=== PATIENT | male | born 1940 | race Caucasian/White ===

== ENCOUNTER 2018-12-26 15:48 | Inpatient (IN) | payer MEDICARE ==
[~2018-12-26] VITALS: Ht 180.3 cm; Wt 109.3 kg
--- NOTE | 2018-12-26 15:57 | Emergency Room Report ---
History of Present Illness General Chief Complaint: Generalized Weakness Source: Medical Record Present Illness HPI 78-year-old male past medical history significant for dementia, hypertension, hyperlipidemia, CVA, [place] presents with a hypotensive episode prior to arrival, no aggravating or alleviating factors, patient denies any nausea vomiting chest pain, shortness of breath, history may be limited secondary to patient's overlying dementia, he had a systolic blood pressure measured in the mid 80s, that subsequently resolved without any intervention by the [facility], patient is brought in by EMS for evaluation Allergies: Coded Allergies: No Known Allergies (Unverified , 12/26/18) Patient History Past Medical History: see triage record Reviewed Nursing Documentation: PMH: Agreed; PSxH: Agreed Nursing Documentation-PMH Past Medical History: No History, Except For Hx Cardiac Problems: Yes - [place], A-fib, Chronic pedal edema, hypercholesterolemia Hx Hypertension: Yes - Anemia Hx Cancer: Yes - colon CA Hx Neurological Problems: Yes - Dementia Hx Cerebrovascular Accident: Yes Review of Systems Constitutional: Denies: chills, fever Eye: Denies: blurred vision, double vision ENT: Denies: throat pain, nasal discharge Respiratory: Denies: cough, shortness of breath Cardiovascular: Denies: chest pain, palpitations Gastrointestinal: Denies: abdominal pain, diarrhea, nausea, vomiting Genitourinary: Denies: dysuria, pain Musculoskeletal: Denies: back pain, muscle pain Skin: Denies: rash, lesions Neurological: Denies: headache, focal weakness Hematologic/Lymphatic: Denies: easy bleeding, easy bruising All Other Systems: limited - Patient states no to all review of systems, patient has a history of dementia Physical Exam Vital Signs Date Time Temp Pulse Resp B/P (MAP) Pulse Ox O2 Delivery O2 Flow Rate FiO2 12/26/18 15:42 97.7 98 18 104/60 (75) 98 Sp02 EP Interpretation: reviewed, normal General Appearance: well appearing, no apparent distress, alert Head: normocephalic, atraumatic Eyes: bilateral eye PERRL, bilateral eye EOMI ENT: uvula midline, moist mucus membranes Neck: supple, thyroid normal, supple/symm/no masses Respiratory: lungs clear, no respiratory distress, no retraction, no accessory muscle use Cardiovascular #1: normal peripheral pulses, no edema, no gallop, no murmur, tachycardia Gastrointestinal: non tender, soft, no guarding, no rebound Musculoskeletal: normal inspection Neurologic: alert, oriented x3 Psychiatric: mood/affect normal Skin: no rash, warm/dry Procedures Critical Care Time Critical Care Time Patient found to be hyperkalemic, no acute EKG changes, patient given insulin, fluids, and at high risk for arrhythmia Critical Care time of 31 minutes was performed exclusive of billable procedures. Medical Decision Making Diagnostic Impression: Primary Impression: Episode of generalized weakness Additional Impressions: Hypotension Acute UTI Hyperkalemia Acute kidney injury ER Course 78-year-old male multiple comorbidities, poor historian, episode of hypotension will order labs, EKG, chest x-ray, Evaluation 5:15 PM, patient found to be hyperkalemic, patient given insulin, glucose, patient also found to have an KIRSTEN, fluid resuscitation was started, patient will be admitted to telemetry floor for observation, and evaluation. Patient is at risk for deterioration secondary to hyperkalemia leading to an arrhythmia, Also given ceftriaxone 1 g for possible UTI Patient admitted to Dr. Samuels 6:00pm Laboratory Tests Test 12/26/18 16:15 12/26/18 16:40 White Blood Count 5.2 K/UL (4.8-10.8) Red Blood Count 2.82 M/UL (4.70-6.10) L Hemoglobin 10.3 G/DL (14.2-18.0) L Hematocrit 29.9 % (42.0-52.0) L Mean Corpuscular Volume 106 FL (80-99) H Mean Corpuscular Hemoglobin 36.4 PG (27.0-31.0) H Mean Corpuscular Hemoglobin Concent 34.4 G/DL (32.0-36.0) Red Cell Distribution Width 11.7 % (11.6-14.8) Platelet Count 196 K/UL (150-450) Mean Platelet Volume 6.1 FL (6.5-10.1) L Neutrophils (%) (Auto) 45.1 % (45.0-75.0) Lymphocytes (%) (Auto) 42.4 % (20.0-45.0) Monocytes (%) (Auto) 8.8 % (1.0-10.0) Eosinophils (%) (Auto) 3.1 % (0.0-3.0) H Basophils (%) (Auto) 0.6 % (0.0-2.0) Sodium Level 140 MMOL/L (136-145) Potassium Level 6.5 MMOL/L (3.5-5.1) *H Chloride Level 107 MMOL/L (98-107) Carbon Dioxide Level 23 MMOL/L (21-32) Anion Gap 10 mmol/L (5-15) Blood Urea Nitrogen 55 mg/dL (7-18) H Creatinine 3.8 MG/DL (0.55-1.30) H Estimate Glomerular Filtration Rate mL/min (>60) Glucose Level 99 MG/DL (74-106) Lactic Acid Level 2.00 mmol/L (0.4-2.0) Calcium Level 9.5 MG/DL (8.5-10.1) Total Bilirubin 0.4 MG/DL (0.2-1.0) Aspartate Amino Transferase (AST) 21 U/L (15-37) Alanine Aminotransferase (ALT) 28 U/L (12-78) Alkaline Phosphatase 83 U/L (46-116) Troponin I 0.000 ng/mL (0.000-0.056) Total Protein 6.4 G/DL (6.4-8.2) Albumin 4.0 G/DL (3.4-5.0) Globulin 2.4 g/dL Albumin/Globulin Ratio 1.7 (1.0-2.7) Lipase 263 U/L (73-393) Urine Color Pale yellow Urine Appearance Clear Urine pH 6 (4.5-8.0) Urine Specific Pierre 1.010 (1.005-1.035) Urine Protein 1+ (NEGATIVE) H Urine Glucose (UA) Negative (NEGATIVE) Urine Ketones Negative (NEGATIVE) Urine Blood Negative (NEGATIVE) Urine Nitrite Negative (NEGATIVE) Urine Bilirubin Negative (NEGATIVE) Urine Urobilinogen Normal MG/DL (0.0-1.0) Urine Leukocyte Esterase 1+ (NEGATIVE) H Urine RBC 0-2 /HPF (0 - 0) H Urine WBC 2-4 /HPF (0 - 0) Urine Squamous Epithelial Cells None /LPF (NONE/OCC) Urine Bacteria Few /HPF (NONE) EKG Diagnostic Results EKG Time: 16:20 EP Interpretation: rate 85, QTc 414, no acute ST elevations, no peaked T waves Rate: normal Rhythm: NSR ST Segments: no acute changes ASA given to the pt in ED: No Rhythm Strip Diag. Results Rhythm Strip Time: 16:09 EP Interpretation: yes Rate: 91 Rhythm: NSR, no PVC's, no ectopy Last Vital Signs Date Time Temp Pulse Resp B/P (MAP) Pulse Ox O2 Delivery O2 Flow Rate FiO2 12/26/18 15:42 97.7 98 18 104/60 (75) 98 Disposition: ADMITTED INPATIENT Condition: Improved Jose Miguel Salsa M.D. Dec 26, 2018 15:57
[2018-12-26 16:01] VITALS: BP 100/86
--- NOTE | 2018-12-26 16:04 | NUR ---
ED Nurse Note: pt brought in to ER by ambulance from [facility] due to low bp 86/50mmHg at the facility. pt aao x2-3 and bedbound at this moment but pt reported that he can ambulate with assist only for short distance. skin clean and intact. calm and cooperative. denying discomfort and pain. pt is in gown and on school lunch monitor.
--- NOTE | 2018-12-26 16:05 | NUR ---
ED Nurse Note: Checked pt's posterior skin. Rt buttock pressure ulcer noted. piture taken.
[2018-12-26 16:52] LABS: APPEARANCE,URINE CLEAR; BILIRUBIN, URINE NEGATIVE (NEGATIVE); COLOR,URINE PALE YELLOW; GLUCOSE, URINE (UA) NEGATIVE (NEGATIVE); KETONES,URINE NEGATIVE (NEGATIVE); LEUKOCYTE ESTERASE ,URINE 1+ (NEGATIVE); NITRITE,URINE NEGATIVE (NEGATIVE); PH,URINE 6 (4.5-8.0); PROTEIN,URINE 1+ (NEGATIVE); UROBILINOGEN,URINE NORMAL MG/DL (0.0-1.0)
[2018-12-26 16:54] LABS: BASOPHILS % (AUTO) 0.6 % (0.0-2.0); EOSINOPHILS % (AUTO) 3.1 % (0.0-3.0); HEMATOCRIT 29.9 % (42.0-52.0); HEMOGLOBIN 10.3 G/DL (14.2-18.0); LYMPHOCYTES % (AUTO) 42.4 % (20.0-45.0); MEAN CORPUSCULAR VOLUME 106 FL (80-99); MONOCYTES % (AUTO) 8.8 % (1.0-10.0); NEUTROPHILS % (AUTO) 45.1 % (45.0-75.0); PLATELET COUNT 196 K/UL (150-450); RED BLOOD COUNT 2.82 M/UL (4.70-6.10); RED CELL DISTRIBUTION WIDTH 11.7 % (11.6-14.8); WHITE BLOOD COUNT 5.2 K/UL (4.8-10.8)
[2018-12-26 17:09] LABS: ALANINE AMINOTRANSFERASE 28 U/L (12-78); ALBUMIN/GLOBULIN RATIO 1.7 (1.0-2.7); ALKALINE PHOSPHATASE 83 U/L (46-116); ANION GAP 10 mmol/L (5-15); ASPARTATE AMINO TRANSFERASE 21 U/L (15-37); BILIRUBIN,TOTAL 0.4 MG/DL (0.2-1.0); BLOOD UREA NITROGEN 55 mg/dL (7-18); CALCIUM 9.5 MG/DL (8.5-10.1); CARBON DIOXIDE 23 MMOL/L (21-32); CHLORIDE 107 MMOL/L (98-107); CREATININE 3.8 MG/DL (0.55-1.30); SODIUM 140 MMOL/L (136-145)
[2018-12-26 17:12] LABS: POTASSIUM 6.5 MMOL/L (3.5-5.1)
[2018-12-26] MEDS ORDERED: cefTRIAXone 1 GM in NS 55 ML IVPB ONE (17:15)
--- NOTE | 2018-12-26 17:21 | NUR ---
ED Nurse Note: x-ray at bedside.
[2018-12-26] MEDS ORDERED: D5 1/2NS 1,000 ML IV ONE (17:30)
[2018-12-26] MEDS ORDERED: Insulin Human Regular 100units/ml 3ml IV ONE (17:30)
[2018-12-26] MEDS ORDERED: Sodium Polystyrene Sulfonate 15gm Powder ORAL ONE (17:30)
[2018-12-26] MEDS ORDERED: Calcium Gluconate 1gm/10ml vial IVP ONE (17:30)
[2018-12-26] MEDS ORDERED: Sodium Bicarbonate 50ml Carp IV ONE (17:30)
--- NOTE | 2018-12-26 18:48 | NUR ---
ED Nurse Note: unable to insert F/C. pt is voiding in urinal clean and yellow urine. ERMD made aware.
--- NOTE | 2018-12-26 18:50 | NUR ---
ED Nurse Note: Attempted to insert with Coude catheter. still unable to insert.
[2018-12-26] MEDS ORDERED: LOSARTAN POTASS50 MG ORAL (19:13)
[2018-12-26] MEDS ORDERED: FLUTICASONE PRO16 G1 NASAL (19:13)
[2018-12-26] MEDS ORDERED: DONEPEZIL HCL10 M2 ORAL (19:13)
[2018-12-26] MEDS ORDERED: VITAMIN B-1000 MCG/1 IM (19:13)
[2018-12-26] MEDS ORDERED: ATORVASTATIN CA20 MG ORAL (19:13)
[2018-12-26] MEDS ORDERED: PROSCAR5 MG ORAL (19:13)
[2018-12-26] MEDS ORDERED: ASPIR 8181 MG ORAL (19:13)
[2018-12-26] MEDS ORDERED: MEMANTINE HCL E28 MG PO (19:13)
[2018-12-26] MEDS ORDERED: TRAZODONE HCL50 MG ORAL (19:15)
[2018-12-26] MEDS ORDERED: OYSTER SHELL C PO (19:15)
[2018-12-26] MEDS ORDERED: SLOW RELEASE I143 MG PO (19:15)
[2018-12-26] MEDS ORDERED: POTASSIUM CHLO20 ME1 ORAL (19:15)
[2018-12-26] MEDS ORDERED: FLOMAX0.4 MG ORAL (19:15)
--- NOTE | 2018-12-26 19:19 | NUR ---
HAND-OFF: Report given to HOUSTON Suarez. will try to give report prior to leave.
--- NOTE | 2018-12-26 19:29 | NUR ---
ED Nurse Note: Coude 16 Fr inserted by HOUSTON Valentin. report given to HOUSTON Contreras
--- NOTE | 2018-12-26 19:30 | NUR ---
ED Nurse Note: RN able to insert daugherty catheter on the 1st attempt using coude size 16 without resistance. Yellow urine collecting in a bag without blood. Patient tolerated the procedure with minimal discomfort.
--- NOTE | 2018-12-26 20:00 | NUR ---
ED Nurse Note: PT BROUGHT UP WITH MARIA TERESA RN AND CATARINO EMT. PT PLACED ON DIABETES NURSE. PT IS AOX2. ON ROOM AIR. PT SHOWS NO SIGNS OF ACUTE DISTRESS AT THE TIME. PT BELOGNINGS BROUGHT UP WITH PT.
[2018-12-26 20:04] VITALS: BP 116/61
[2018-12-26 20:13] VITALS: BP 117/72
--- NOTE | 2018-12-26 20:15 | NUR ---
NURSE NOTES: Admitted from ED this 78yo male with hypotension, hyperkalemia, generalized weakness. pt is awake, alert, oriented to self and place ; follow commands and shows no signs of any acute distress. Denies pain, denies SOB. Afebrile, NSR, O2 sats 100% on RA, BP 107 systolic. PIV site on LFA intact, IVF of D51/2NS infuses at 100ml/h. HL on left hand patent. Pt has a daugherty cath, Fr 16, draining clear yellow urine. BLE edema 2+noted, skin dry and intact; some redness noted on buttocks area but otherwise intact. Fall precautions in place. Plan of care explained, teachings need reinforcement as pt forgetful.
[2018-12-26] MEDS ORDERED: D5NS 1,000 ML IV SCH (20:45)
--- NOTE | 2018-12-26 20:45 | NUR ---
NURSE NOTES: Called Dr Samuels for orders; gave orders for diet and IV; he will put more orders in later
[2018-12-26 21:00] VITALS: BP 103/60
[2018-12-26 22:00] VITALS: BP 116/55
--- NOTE | 2018-12-26 22:14 | History & Physical ---
History and Physical History & Physicial 78 y old hypotension renal failure h/o HTN Dementia BPH h/o COlon Ca Anemia CVA CAD PAF seen in ER Per orders # [id number] Russell Samuels MD Dec 26, 2018 22:14
--- NOTE | 2018-12-26 22:30 | NUR ---
NURSE NOTES: Noted Dr Samuels's orders. pt is a full code and meds orders to commence in AM. Pt remains awake and watches TV, no distress, VSS
[2018-12-26 23:00] VITALS: BP 118/70
[2018-12-27] VITALS (17 sets, daily range): BP systolic 90–132; BP diastolic 50–70
--- NOTE | 2018-12-27 | NUR ---
NURSE NOTES: Still awake and watches TV. 2 cups OJ given. IV site intact. VSS, no distress
--- NOTE | 2018-12-27 02:00 | NUR ---
NURSE NOTES: Sleeping with HOB elevated. VSS, no distress.
--- NOTE | 2018-12-27 04:00 | NUR ---
NURSE NOTES: Awake, denies pain, denies SOB. Afebrile. IV site on LFA and HL on Lhand intact. Pt keeps on forgetting that he has a daugherty cath and always stating he needed to urinate. Bladder area soft, catheter patent. AM care rendered.
[2018-12-27 06:57] LABS: HEMATOCRIT 27.2 % (42.0-52.0); HEMOGLOBIN 9.3 G/DL (14.2-18.0); MEAN CORPUSCULAR VOLUME 107 FL (80-99); PLATELET COUNT 189 K/UL (150-450); RED BLOOD COUNT 2.55 M/UL (4.70-6.10); RED CELL DISTRIBUTION WIDTH 11.9 % (11.6-14.8); WHITE BLOOD COUNT 6.5 K/UL (4.8-10.8)
--- NOTE | 2018-12-27 07:13 | NUR ---
HAND-OFF: Report given to Phi Cuenca RN.
--- NOTE | 2018-12-27 07:14 | NUR ---
NURSE NOTES: Received patient from HOUSTON Chiang. Patient vital signs stable at this time. Patient temperature 98.4. Patient denies pain or discomfort. Patient has an order for renal ultrasound this morning. The order is not stat, so it may be done tomorrow, will follow up with Dr Samuels and ultrasound. Patient sleeping at this time. Patient easily aroused and forgetful due to history of dementia. Patient has left forearm 20G PIV that is patent, asymptomatic, and running D5 0.9% NS at 50mL/hr at this time. Patient has left hand 20G PIV that is patent, asymptomatic, and saline locked. Patient labs still pending for the morning. Will follow up. patient had high potassium yesterday. Will monitor potassium and notify MD if potassium is elevated this morning. Patient has an order for 2D echo as well as renal ultrasound. Will follow up. Patient bed in low position with bed alarm on and call light in reach at this time.
[2018-12-27 07:51] LABS: ANION GAP 10 mmol/L (5-15); BLOOD UREA NITROGEN 47 mg/dL (7-18); CARBON DIOXIDE 27 MMOL/L (21-32); CHLORIDE 111 MMOL/L (98-107); CREATININE 3.2 MG/DL (0.55-1.30); POTASSIUM 4.5 MMOL/L (3.5-5.1); SODIUM 148 MMOL/L (136-145)
[2018-12-27 07:52] LABS: ALANINE AMINOTRANSFERASE 20 U/L (12-78); ALBUMIN 3.2 G/DL (3.4-5.0); ALBUMIN/GLOBULIN RATIO 1.1 (1.0-2.7); ALKALINE PHOSPHATASE 75 U/L (46-116); ASPARTATE AMINO TRANSFERASE 11 U/L (15-37); BILIRUBIN,TOTAL 0.3 MG/DL (0.2-1.0); CALCIUM 9.5 MG/DL (8.5-10.1); CHOLESTEROL 112 MG/DL (< 200); CREATINE KINASE 40 U/L (26-308); FERRITIN 701 NG/ML (8-388); GAMMA GLUTAMYL TRANSPEPTIDASE 31 U/L (5-85); HDL CHOLESTEROL 33 MG/DL (40-60); PHOSPHORUS 4.5 MG/DL (2.5-4.9); TRIGLYCERIDES 69 MG/DL (30-150)
[2018-12-27 07:58] LABS: % IRON SATURATION 44 % (15-50); IRON 65 ug/dL (50-175); TOTAL IRON BINDING CAPACITY 148 ug/dL (250-450)
--- NOTE | 2018-12-27 08:29 | NUR ---
NURSE NOTES: Called ultrasound and then radiology when ultrasound did not answer to inquire whether the patient needs to be NPO and whether the ultrasound will be performed today. They reported that that will call me back.
[2018-12-27] MEDS ORDERED: Heparin 5000 units/ml inj SUBQ SCH (09:00)
[2018-12-27] MEDS ORDERED: Donepezil 10mg tab ORAL SCH (09:00)
[2018-12-27] MEDS ORDERED: Losartan 50mg tab ORAL SCH (09:00)
[2018-12-27] MEDS ORDERED: Memantine 10mg tab ORAL SCH (09:00)
[2018-12-27] MEDS ORDERED: Aspirin Baby 81mg ORAL SCH (09:00)
[2018-12-27] MEDS: Docusate 100mg cap ORAL SCH ×3 (09:53→17:25)
--- NOTE | 2018-12-27 12:00 | NUR ---
NURSE NOTES: Patient vital signs stable at this time. Patient temperature 98.1. Patient denies pain or discomfort. Patient has an order for renal ultrasound stat that has still not been done. Patient eating lunch at this time but does not have much of an appetite at this time. Patient easily aroused, pleasant without sign of acute distress, and forgetful due to history of dementia. Patient has left forearm 20G PIV that is patent, asymptomatic, and running D5 0.9% NS at 50mL/hr at this time. Patient has left hand 20G PIV that is patent, asymptomatic, and saline locked. Patient's potassium came back at 4.5. Will follow up. Patient bed in low position with bed alarm on and call light in reach at this time.
[2018-12-27] MEDS ORDERED: D5 1/2NS 1,000 ML IV SCH (12:38)
--- NOTE | 2018-12-27 12:43 | General Progress Note ---
Assessment/Plan Problem List: (1) Acute kidney injury ICD Codes: N17.9 - Acute kidney failure, unspecified SNOMED: 24024618, 7489270 (2) Hypotension ICD Codes: I95.9 - Hypotension, unspecified SNOMED: 90247190 (3) Anemia in chronic illness ICD Codes: D63.8 - Anemia in other chronic diseases classified elsewhere SNOMED: 322316130 (4) Elevated PSA Assessment & Plan: BPH ICD Codes: R97.20 - Elevated prostate specific antigen [PSA] SNOMED: 628373605 (5) Impaired cognition ICD Codes: R41.89 - Other symptoms and signs involving cognitive functions and awareness SNOMED: 373672745 Assessment/Plan: echo results noted- fluid challenge to tele cont per orders epo Subjective Date patient seen: Dec 27, 2018 ROS Limited/Unobtainable: No Constitutional: Reports: malaise Gastrointestinal/Abdominal: Reports: other - poor po Allergies: Coded Allergies: No Known Allergies (Unverified , 12/26/18) Objective Last 24 Hour Vital Signs Date Time Temp Pulse Resp B/P (MAP) Pulse Ox O2 Delivery O2 Flow Rate FiO2 12/27/18 09:00 100/59 12/27/18 06:00 76 17 108/54 (72) 98 12/27/18 05:02 80 12 108/55 (72) 98 12/27/18 04:00 98.5 81 17 108/55 (72) 100 12/27/18 04:00 Room Air 12/27/18 04:00 80 12/27/18 03:00 74 17 104/52 (69) 100 12/27/18 02:00 76 16 95/50 (65) 100 12/27/18 01:00 77 16 90/52 (65) 99 12/27/18 00:00 98.7 82 14 102/54 (70) 100 12/27/18 00:00 Room Air 12/27/18 00:00 78 12/26/18 23:00 96 20 118/70 (86) 100 12/26/18 22:00 88 17 116/55 (75) 100 12/26/18 21:00 93 22 103/60 (74) 100 12/26/18 20:15 Room Air 12/26/18 20:13 100 20 117/72 (87) 100 7/13/19 20:04 97.9 98 16 116/61 99 Room Air 12/26/18 20:00 97.9 98 18 116/61 99 Room Air 12/26/18 16:01 97 18 Room Air 12/26/18 16:01 97.7 97 18 100/86 98 12/26/18 15:42 97.7 98 18 104/60 (75) 98 Intake and Output 12/26/18 12/27/18 18:59 06:59 Intake Total 1055 ml 1030 ml Output Total 1350 ml Balance 1055 ml -320 ml Intake Oral 0 ml 480 ml IV Total 1055 ml 550 ml Output Urine Total 1350 ml Current Medications Medications (Trade) Dose Ordered Sig/Penelope Route PRN Reason Start Time Stop Time Status Last Admin Dose Admin Acetaminophen (Tylenol) 650 mg Q4H PRN ORAL Mild Pain/Temp > 100.5 12/26/18 22:15 01/25/19 22:14 Aspirin (ASA) 81 mg DAILY ORAL 12/27/18 09:00 01/26/19 08:59 12/27/18 09:53 Dextrose/Sodium Chloride 1,000 ml @ 75 mls/hr [id number] IV 12/27/18 12:38 01/26/19 12:37 Docusate Sodium (Colace) 100 mg THREE TIMES A DAY ORAL 12/27/18 09:00 01/26/19 08:59 12/27/18 12:33 Donepezil HCl (Aricept) 10 mg DAILY ORAL 12/27/18 09:00 01/26/19 08:59 12/27/18 09:48 Finasteride (Proscar) 5 mg DAILY ORAL 12/27/18 09:00 01/26/19 08:59 12/27/18 09:52 Heparin Sodium (Porcine) (Heparin 5000 units/ml) 5,000 units EVERY 12 HOURS SUBQ 12/27/18 09:00 01/26/19 08:59 12/27/18 09:59 Losartan Potassium (Cozaar) 25 mg DAILY ORAL 12/27/18 09:00 01/26/19 08:59 Memantine (Namenda) 10 mg DAILY ORAL 12/27/18 09:00 01/26/19 08:59 12/27/18 09:52 Ondansetron HCl (Zofran) 4 mg Q6H PRN IVP Nausea & Vomiting 12/26/18 22:15 01/25/19 22:14 Pantoprazole (Protonix) 40 mg EVERY 12 HOURS ORAL 12/27/18 09:00 01/26/19 08:59 12/27/18 09:53 Sodium Chloride 500 ml @ 999 mls/hr Q31M ONCE IV 12/27/18 12:30 12/27/18 13:00 12/27/18 12:30 Tamsulosin HCl (Flomax) 0.4 mg QHS ORAL 12/27/18 21:00 01/26/19 20:59 Trazodone HCl (Desyrel) 50 mg BEDTIME ORAL 12/27/18 21:00 01/26/19 20:59 Laboratory Tests 12/26/18 16:15: White Blood Count 5.2, Red Blood Count 2.82L, Hemoglobin 10.3L, Hematocrit 29.9L , Mean Corpuscular Volume 106H, Mean Corpuscular Hemoglobin 36.4H, Mean Corpuscular Hemoglobin Concent 34.4, Red Cell Distribution Width 11.7, Platelet Count 196, Mean Platelet Volume 6.1L, Neutrophils (%) (Auto) 45.1, Lymphocytes ( %) (Auto) 42.4, Monocytes (%) (Auto) 8.8, Eosinophils (%) (Auto) 3.1H, Basophils (%) (Auto) 0.6, Sodium Level 140, Potassium Level 6.5*H, Chloride Level 107, Carbon Dioxide Level 23, Anion Gap 10, Blood Urea Nitrogen 55H, Creatinine 3.8H, Estimat Glomerular Filtration Rate , Glucose Level 99, Lactic Acid Level 2.00, Calcium Level 9.5, Total Bilirubin 0.4, Aspartate Amino Transf (AST/SGOT) 21, Alanine Aminotransferase (ALT/SGPT) 28, Alkaline Phosphatase 83, Troponin I 0.000, Total Protein 6.4, Albumin 4.0, Globulin 2.4, Albumin/ Globulin Ratio 1.7, Lipase 263 12/26/18 16:40: Urine Color Pale yellow, Urine Appearance Clear, Urine pH 6, Urine Specific Hope 1.010, Urine Protein 1+H, Urine Glucose (UA) Negative, Urine Ketones Negative, Urine Blood Negative, Urine Nitrite Negative, Urine Bilirubin Negative , Urine Urobilinogen Normal, Urine Leukocyte Esterase 1+H, Urine RBC 0-2H, Urine WBC 2-4, Urine Squamous Epithelial Cells None, Urine Bacteria Few 12/27/18 05:51: White Blood Count 6.5, Red Blood Count 2.55L, Hemoglobin 9.3L, Hematocrit 27.2L , Mean Corpuscular Volume 107H, Mean Corpuscular Hemoglobin 36.5H, Mean Corpuscular Hemoglobin Concent 34.3, Red Cell Distribution Width 11.9, Platelet Count 189, Mean Platelet Volume 6.3L, Neutrophils (%) (Auto) , Lymphocytes (%) ( Auto) , Monocytes (%) (Auto) , Eosinophils (%) (Auto) , Basophils (%) (Auto) , Sodium Level 148H, Potassium Level 4.5, Chloride Level 111H, Carbon Dioxide Level 27, Anion Gap 10, Blood Urea Nitrogen 47H, Creatinine 3.2H, Estimat Glomerular Filtration Rate , Glucose Level 113H, Lactic Acid Level 2.20H, Calcium Level 9.5, Total Bilirubin 0.3, Aspartate Amino Transf (AST/SGOT) 11L, Alanine Aminotransferase (ALT/SGPT) 20, Alkaline Phosphatase 75, Troponin I 0.004, Total Protein 6.2L, Albumin 3.2L, Globulin 3.0, Albumin/Globulin Ratio 1.1, Differential Total Cells Counted 100, Neutrophils % (Manual) 41L, Lymphocytes % (Manual) 53H, Monocytes % (Manual) 6, Eosinophils % (Manual) 0, Basophils % (Manual) 0, Band Neutrophils 0, Platelet Estimate Adequate, Platelet Morphology Normal, Macrocytosis 1+, Hemoglobin A1c 5.0, Uric Acid 7.9H , Phosphorus Level 4.5, Magnesium Level 2.2, Iron Level 65, Total Iron Binding Capacity 148L, Percent Iron Saturation 44, Unsaturated Iron Binding 83L, Ferritin 701H, Gamma Glutamyl Transpeptidase 31, Total Creatine Kinase 40, C- Reactive Protein, Quantitative < 0.4, Pro-B-Type Natriuretic Peptide 302H, Triglycerides Level 69, Cholesterol Level 112, LDL Cholesterol 64, HDL Cholesterol 33L, Cholesterol/HDL Ratio 3.4, Carcinoembryonic Antigen [Pending], Prostate Specific Antigen 10.09H, Vitamin B12 Level 1895H, Folate 18.7, Thyroid Stimulating Hormone (TSH) 0.760 12/27/18 07:00: Urine Random Sodium 33 12/27/18 10:02: Lactic Acid Level 2.00 Height (Feet): 5 Height (Inches): 11.00 Weight (Pounds): 233 General Appearance: no apparent distress, lethargic Cardiovascular: normal rate Respiratory/Chest: decreased breath sounds Abdomen: soft Genitourinary/Rectal: other - daugherty Extremities: other - no edema Russell Samuels MD Dec 27, 2018 12:43
[2018-12-27] MEDS ORDERED: Epoetin Alfa-EPBX (NON ESRD)10,000 unit/ml vial SUBQ SCH (13:00)
--- NOTE | 2018-12-27 13:00 | NUR ---
NURSE NOTES: Spoke with Dr Samuels who ordered that patient can be transferred to telemetry when bed available. Will follow up. IV fluid changed to D5 0.45% NS at 75mL/hr.
--- NOTE | 2018-12-27 14:30 | Diagnostic Imaging Report ---
Indication: Dyspnea Comparison: None A single view chest radiograph was obtained. Findings: No definite infiltrate or pulmonary vascular congestion identified. Mild basal atelectasis noted. The heart is enlarged. The aorta is mildly enlarged consistent with atherosclerotic vascular disease. The bones are osteopenic. Impression: No acute disease
--- NOTE | 2018-12-27 14:59 | NUR ---
TRANSFER TO FLOOR: Patient transferred to telemetry, per Dr Samuels. Report given to HOUSTON Hooks. Belongings remain with patient. NO medications transferred with patient. Endorsed to inform family of transfer. Patient denies pain or discomfort at this time.
--- NOTE | 2018-12-27 15:00 | NUR ---
NURSE NOTES: Patient received from the ICU and report received from William Cuenca RN. Patient oriented to the room and the use of the call light. Bed in the lowest position and call light within reach. Patient does not display any signs of distress or SOB. Patient's IV's patent. I will continue to monitor the patient and implement care.
[2018-12-27] MEDS: D5 1/2NS 1,000 ML IV SCH (15:58)
--- NOTE | 2018-12-27 16:28 | NUR ---
HAND-OFF: Report given to HOUSTON Renae.
--- NOTE | 2018-12-27 16:30 | NUR ---
NURSE NOTES: Report received from HOUSTON Hooks. Pt. AOx2. In RA. Denies any pain or SOB. L and R hand 20g IVs. R H 20g running D51/2 NS at 75. site intact. Bed on lowest position, side rails upx2, brakes engaged. Call light within easy reach.
[2018-12-27] MEDS ORDERED: NS 500ML ONE (17:13)
[2018-12-27] MEDS ORDERED: D5NS 1000ml IV ONE (17:13)
[2018-12-27] MEDS ORDERED: Tubing IV Secondary IV ONE (17:13)
[2018-12-27] MEDS ORDERED: D5 1/2NS 1000ml IV ONE (17:13)
--- NOTE | 2018-12-27 19:26 | NUR ---
NURSE NOTES: Report received from HOUSTON Salomon. Pt is in stable condition lying comfortably in bed. Bed in the lowest position, bed brakes engaged, side rails up x3 and call light within reach. Will continue to monitor.
--- NOTE | 2018-12-27 19:30 | NUR ---
HAND-OFF: Report given to HOUSTON Hart. Pt. in stable condition.
[2018-12-27] MEDS ORDERED: FUROSEMIDE40 MG ORAL (19:36)
[2018-12-27] MEDS: TraZODone 50mg tab ORAL SCH (20:57)
[2018-12-27] MEDS: Tamsulosin 0.4mg cap ORAL SCH (20:58)
[2018-12-27] MEDS ORDERED: TraZODone 50mg tab ORAL SCH (21:00)
[2018-12-27] MEDS ORDERED: Tamsulosin 0.4mg cap ORAL SCH (21:00)
[2018-12-27] MEDS: Heparin 5000 units/ml inj SUBQ SCH (21:01)
[2018-12-28] VITALS: BP 111/59
[2018-12-28 04:00] VITALS: BP 115/61
[2018-12-28] MEDS: D5 1/2NS 1,000 ML IV SCH ×2 (04:25→18:16)
[2018-12-28 06:32] LABS: BASOPHILS % (AUTO) 0.4 % (0.0-2.0); EOSINOPHILS % (AUTO) 3.7 % (0.0-3.0); HEMATOCRIT 25.1 % (42.0-52.0); HEMOGLOBIN 8.5 G/DL (14.2-18.0); MEAN CORPUSCULAR VOLUME 107 FL (80-99); MONOCYTES % (AUTO) 7.6 % (1.0-10.0); NEUTROPHILS % (AUTO) 36.3 % (45.0-75.0); PLATELET COUNT 175 K/UL (150-450); RED BLOOD COUNT 2.34 M/UL (4.70-6.10); RED CELL DISTRIBUTION WIDTH 11.9 % (11.6-14.8)
[2018-12-28 06:57] LABS: ALANINE AMINOTRANSFERASE 15 U/L (12-78); ALBUMIN 3.4 G/DL (3.4-5.0); ALBUMIN/GLOBULIN RATIO 1.4 (1.0-2.7); ALKALINE PHOSPHATASE 68 U/L (46-116); ANION GAP 8 mmol/L (5-15); ASPARTATE AMINO TRANSFERASE 9 U/L (15-37); BILIRUBIN,TOTAL 0.4 MG/DL (0.2-1.0); BLOOD UREA NITROGEN 35 mg/dL (7-18); CALCIUM 8.8 MG/DL (8.5-10.1); CARBON DIOXIDE 26 MMOL/L (21-32); CHLORIDE 107 MMOL/L (98-107); CREATININE 2.2 MG/DL (0.55-1.30); PHOSPHORUS 3.5 MG/DL (2.5-4.9); POTASSIUM 4.1 MMOL/L (3.5-5.1); SODIUM 141 MMOL/L (136-145)
--- NOTE | 2018-12-28 07:20 | NUR ---
NURSE NOTES: Report received from HOUSTON Stacy. Patient sleeping comfortably. Aroused by name. In RA. AOx2. Denies any pain or SOB. IV running D5 1/2 NS at 75 on R H 20g IV. Site intact. Rosales intact, draining celia urine, emptied 660mL. Bed on lowest position, side rails upx2, brakes engaged, alarm on. Reminder given to Pt. to reposition Q2 or as tolerated. Call light within easy reach.
--- NOTE | 2018-12-28 07:27 | NUR ---
HAND-OFF: Report given to HOUSTON Salomon.
[2018-12-28 08:00] VITALS: BP 99/54
--- NOTE | 2018-12-28 08:22 | NUR ---
CASE MANAGEMENT:REVIEW 78 YR OLD MALE BIBA FROM [facility] CC: HYPOTENSION BP 86/51 PMH: COLON CA SI: HYPOTENSION. KIRSTEN. HYPERKALEMIA 97.7 98 18 104/60 98% ON RA K-6.5 BUN+55 CR+3.8 IS: IV ROCEPHIN Q24 1L NS BOLUS X1 IV CA GLUCONATE IV INSULIN IV NAHCO3 IV LASIX KAYEXALATE PO CHEST XRAY : TO TELEMETRY INTERQUAL CRITERIA MET 12/28/18 SI: KIRSTEN. HYPOTENSION 98.9 81 18 115/61 96% ON RA H/H-8.5/25.1 BUN+35 CR+2.2 IS: IVF@75/HR ASA PO QD ARICEPT PO QD PROSCAR PO QD COZAAR PO QD HEPARIN SQ Q12 FLOMAX PO QHS : TELEMETRY
[2018-12-28] MEDS: Losartan 25mg tab ORAL SCH (09:00)
--- NOTE | 2018-12-28 09:30 | NUR ---
NURSE NOTES:WOUND CARE NOTES:pt presented on admission with non-blanchable erythema with shearing R buttocks . Partial thickness wound that is viable proximal R buttocks(L)5.5cm x (W)2cm. Partial thickness wound that is moist and viable (distal )R buttocks.Non-blanchable erythema noted periwound.Pt denied burning or tenderness R buttocks. Both heels are dry,firm and blanchable . No other skin concerns noted. Tx.Plan: Apply Triad paste to R and L buttocks with each incontinence care. Encourage and assist as needed to reposition at least every 2hours or as tolerated. Off-load heels with pillow
[2018-12-28] MEDS: Memantine 10mg tab ORAL SCH (09:55)
[2018-12-28] MEDS: Docusate 100mg cap ORAL SCH ×3 (09:55→18:16)
[2018-12-28] MEDS: Donepezil 10mg tab ORAL SCH (09:55)
[2018-12-28] MEDS: Aspirin Baby 81mg ORAL SCH (09:56)
[2018-12-28] MEDS: Heparin 5000 units/ml inj SUBQ SCH ×2 (09:59→20:53)
--- NOTE | 2018-12-28 11:01 | General Progress Note ---
Assessment/Plan Problem List: (1) Acute kidney injury ICD Codes: N17.9 - Acute kidney failure, unspecified SNOMED: 35290196, 2912371 (2) Hypotension ICD Codes: I95.9 - Hypotension, unspecified SNOMED: 63922271 (3) Anemia in chronic illness ICD Codes: D63.8 - Anemia in other chronic diseases classified elsewhere SNOMED: 034487437 (4) Elevated PSA Assessment & Plan: BPH ICD Codes: R97.20 - Elevated prostate specific antigen [PSA] SNOMED: 908777914 (5) Impaired cognition ICD Codes: R41.89 - Other symptoms and signs involving cognitive functions and awareness SNOMED: 596463569 Status: doing well, stable Assessment/Plan: echo results noted- fluid challenge to tele cont per orders epo ? DC in am if stable one gram rocephin , pending urine culture results Subjective ROS Limited/Unobtainable: No Allergies: Coded Allergies: No Known Allergies (Unverified , 12/26/18) Objective Last 24 Hour Vital Signs Date Time Temp Pulse Resp B/P (MAP) Pulse Ox O2 Delivery O2 Flow Rate FiO2 12/28/18 09:00 96/54 12/28/18 08:00 72 12/28/18 08:00 98.8 81 18 99/54 (69) 97 12/28/18 04:00 83 12/28/18 04:00 98.9 81 18 115/61 (79) 96 12/28/18 00:00 84 12/28/18 00:00 99.4 80 16 111/59 (76) 96 12/27/18 21:00 Room Air 12/27/18 20:00 80 12/27/18 20:00 98.2 92 18 101/51 (68) 97 12/27/18 16:00 98.4 81 18 117/61 (79) 97 12/27/18 16:00 72 12/27/18 16:00 Room Air 12/27/18 14:00 71 17 115/59 (77) 97 12/27/18 13:02 65 14 108/52 (70) 99 12/27/18 12:00 Room Air 12/27/18 12:00 98.1 82 17 124/67 (86) 100 12/27/18 12:00 76 Intake and Output 12/27/18 12/28/18 19:00 07:00 Intake Total 2375 ml Output Total 1000 ml 500 ml Balance 1375 ml -500 ml Intake Oral 900 ml IV Total 1475 ml Output Urine Total 1000 ml 500 ml Current Medications Medications (Trade) Dose Ordered Sig/Penelope Route PRN Reason Start Time Stop Time Status Last Admin Dose Admin Acetaminophen (Tylenol) 650 mg Q4H PRN ORAL Mild Pain/Temp > 100.5 12/27/18 15:01 01/26/19 15:00 Aspirin (ASA) 81 mg DAILY ORAL 12/28/18 09:00 01/26/19 08:59 12/28/18 09:56 Ceftriaxone Sodium 1 gm/ Dextrose 55 ml @ 110 mls/hr ONCE ONCE IVPB 12/28/18 11:00 12/28/18 11:29 UNV Dextrose/Sodium Chloride 1,000 ml @ 75 mls/hr [id number] IV 12/27/18 15:01 01/26/19 15:00 12/28/18 04:25 Docusate Sodium (Colace) 100 mg THREE TIMES A DAY ORAL 12/27/18 18:00 01/26/19 08:59 12/28/18 09:55 Donepezil HCl (Aricept) 10 mg DAILY ORAL 12/28/18 09:00 01/26/19 08:59 12/28/18 09:55 Epoetin Milad (Epoetin Milad-EPBX(NON ESRD)) 10,000 unit FRI-FRI-FRI SUBQ 12/28/18 21:00 01/26/19 12:59 Finasteride (Proscar) 5 mg DAILY ORAL 12/28/18 09:00 01/26/19 08:59 12/28/18 09:55 Heparin Sodium (Porcine) (Heparin 5000 units/ml) 5,000 units EVERY 12 HOURS SUBQ 12/27/18 21:00 01/26/19 08:59 12/28/18 09:59 Losartan Potassium (Cozaar) 25 mg DAILY ORAL 12/28/18 09:00 01/26/19 08:59 Memantine (Namenda) 10 mg DAILY ORAL 12/28/18 09:00 01/26/19 08:59 12/28/18 09:55 Ondansetron HCl (Zofran) 4 mg Q6H PRN IVP Nausea & Vomiting 12/27/18 15:03 01/26/19 15:02 Pantoprazole (Protonix) 40 mg EVERY 12 HOURS ORAL 12/27/18 21:00 01/26/19 08:59 12/28/18 09:54 Quetiapine Fumarate (SEROquel) 25 mg BID ORAL 12/28/18 18:00 01/27/19 17:59 UNV Tamsulosin HCl (Flomax) 0.4 mg QHS ORAL 12/27/18 21:00 01/26/19 20:59 12/27/18 20:58 Trazodone HCl (Desyrel) 50 mg BEDTIME ORAL 12/27/18 21:00 01/26/19 20:59 12/27/18 20:57 Laboratory Tests 12/27/18 15:55: Lactic Acid Level 0.90 12/28/18 05:45: Lactic Acid Level 0.80, White Blood Count 6.0, Red Blood Count 2.34L, Hemoglobin 8.5L, Hematocrit 25.1L, Mean Corpuscular Volume 107H, Mean Corpuscular Hemoglobin 36.3H, Mean Corpuscular Hemoglobin Concent 33.9, Red Cell Distribution Width 11.9, Platelet Count 175, Mean Platelet Volume 5.9L, Neutrophils (%) (Auto) 36.3L, Lymphocytes (%) (Auto) 52.0H, Monocytes (%) (Auto ) 7.6, Eosinophils (%) (Auto) 3.7H, Basophils (%) (Auto) 0.4, Sodium Level 141, Potassium Level 4.1, Chloride Level 107, Carbon Dioxide Level 26, Anion Gap 8, Blood Urea Nitrogen 35H, Creatinine 2.2H, Estimat Glomerular Filtration Rate , Glucose Level 96, Uric Acid 6.9, Calcium Level 8.8, Phosphorus Level 3.5, Magnesium Level 2.0, Total Bilirubin 0.4, Aspartate Amino Transf (AST/SGOT) 9L, Alanine Aminotransferase (ALT/SGPT) 15, Alkaline Phosphatase 68, Pro-B-Type Natriuretic Peptide 703H, Total Protein 5.9L, Albumin 3.4, Globulin 2.5, Albumin /Globulin Ratio 1.4, Cortisol AM Sample [Pending] Height (Feet): 5 Height (Inches): 11.00 Weight (Pounds): 242 General Appearance: no apparent distress Cardiovascular: normal rate Respiratory/Chest: lungs clear Abdomen: soft Russell Samuels MD Dec 28, 2018 11:01
[2018-12-28 12:00] VITALS: BP 103/56
[2018-12-28] MEDS ORDERED: cefTRIAXone 1 GM in D5W 55 ML IVPB ONE (12:00)
[2018-12-28 16:00] VITALS: BP 116/59
--- NOTE | 2018-12-28 19:50 | NUR ---
HAND-OFF: Report given to HOUSTON Neumann. Patient in stable condition.
--- NOTE | 2018-12-28 19:51 | NUR ---
NURSE NOTES: Got report from Umm CONRAD. Pt in stable condition. Denies any pain. No s/s of distress or discomfort noted. Pt resting in bed comfortably. Bed in low and locked position, call light within reach, bedside table within reach. Continue to monitor.
[2018-12-28 20:00] VITALS: BP 109/59
[2018-12-28] MEDS: TraZODone 50mg tab ORAL SCH (20:51)
[2018-12-28] MEDS: Tamsulosin 0.4mg cap ORAL SCH (20:51)
[2018-12-28] MEDS ORDERED: Epoetin Alfa-EPBX (NON ESRD)10,000 unit/ml vial SUBQ SCH (21:00)
[2018-12-29] VITALS: BP 128/61
[2018-12-29 04:10] VITALS: BP 138/57
[2018-12-29] MEDS: D5 1/2NS 1,000 ML IV SCH (06:31)
--- NOTE | 2018-12-29 07:00 | NUR ---
HAND-OFF: Report given to Emy CONRAD. Endorsed plan of care.
[2018-12-29 07:08] LABS: BASOPHILS % (AUTO) 0.4 % (0.0-2.0); EOSINOPHILS % (AUTO) 3.7 % (0.0-3.0); HEMATOCRIT 25.3 % (42.0-52.0); HEMOGLOBIN 8.6 G/DL (14.2-18.0); LYMPHOCYTES % (AUTO) 54.2 % (20.0-45.0); MEAN CORPUSCULAR VOLUME 108 FL (80-99); MONOCYTES % (AUTO) 6.6 % (1.0-10.0); NEUTROPHILS % (AUTO) 35.2 % (45.0-75.0); PLATELET COUNT 156 K/UL (150-450); RED BLOOD COUNT 2.34 M/UL (4.70-6.10); RED CELL DISTRIBUTION WIDTH 11.9 % (11.6-14.8)
[2018-12-29 07:46] LABS: ALANINE AMINOTRANSFERASE 13 U/L (12-78); ALBUMIN 2.8 G/DL (3.4-5.0); ALKALINE PHOSPHATASE 63 U/L (46-116); ANION GAP 4 mmol/L (5-15); ASPARTATE AMINO TRANSFERASE 13 U/L (15-37); BILIRUBIN,TOTAL 0.3 MG/DL (0.2-1.0); BLOOD UREA NITROGEN 25 mg/dL (7-18); CALCIUM 8.7 MG/DL (8.5-10.1); CARBON DIOXIDE 26 MMOL/L (21-32); CHLORIDE 111 MMOL/L (98-107); CREATININE 1.7 MG/DL (0.55-1.30); POTASSIUM 3.8 MMOL/L (3.5-5.1); SODIUM 141 MMOL/L (136-145)
--- NOTE | 2018-12-29 07:46 | NUR ---
NURSE NOTES: Nurse report given by HOUSTON Joseph. Patient's still sleeping, high-silva position, bed in lowest position, break engaged. IV site is patent, running D5 1/2 NS, no sign of redness or tenderness. No sign of SOB or distress.
[2018-12-29 08:00] VITALS: BP 119/63
--- NOTE | 2018-12-29 09:00 | Diagnostic Imaging Report ---
Indication: Acute renal failure Technique: Grayscale and duplex images of the kidneys, retroperitoneum, and bladder were obtained. Comparison: none Findings: Right kidney measures 9.8 cm in length. Left kidney measures 11.1 cm in length. Both kidneys demonstrate normal echogenicity. No hydronephrosis. No focal abnormality. Normal inferior vena cava. Bladder is empty, contains a Rosales catheter. There is equivocal mild bladder wall thickening Impression: Negative for hydronephrosis Empty bladder with a Rosales catheter. Equivocal mild bladder wall thickening, possibly an artifact of under distention, could indicate cystitis if real
--- NOTE | 2018-12-29 09:11 | General Progress Note ---
Assessment/Plan Problem List: (1) Acute kidney injury Assessment & Plan: Cr down to 1.7 ICD Codes: N17.9 - Acute kidney failure, unspecified SNOMED: 54328068, 7972644 (2) Hypotension ICD Codes: I95.9 - Hypotension, unspecified SNOMED: 89948893 (3) Anemia in chronic illness ICD Codes: D63.8 - Anemia in other chronic diseases classified elsewhere SNOMED: 210146852 (4) Elevated PSA Assessment & Plan: BPH ICD Codes: R97.20 - Elevated prostate specific antigen [PSA] SNOMED: 008493112 (5) Impaired cognition ICD Codes: R41.89 - Other symptoms and signs involving cognitive functions and awareness SNOMED: 635310646 Status: doing well, stable Assessment/Plan: DC to ECF Urine cultures negative DC daugherty FU with PMD echo results noted- fluid challenge to tele cont per orders epo one gram rocephin , pending urine culture results Subjective ROS Limited/Unobtainable: No Allergies: Coded Allergies: No Known Allergies (Unverified , 12/26/18) Objective Last 24 Hour Vital Signs Date Time Temp Pulse Resp B/P (MAP) Pulse Ox O2 Delivery O2 Flow Rate FiO2 12/29/18 08:00 98.1 68 20 119/63 (81) 95 12/29/18 04:20 65 12/29/18 04:10 98.5 67 18 138/57 (84) 97 12/29/18 00:00 98.3 67 18 128/61 (83) 96 12/29/18 00:00 59 12/28/18 21:00 Room Air 12/28/18 20:00 98.4 65 18 109/59 (76) 99 12/28/18 20:00 62 12/28/18 16:00 97.8 74 18 116/59 (78) 98 12/28/18 16:00 76 12/28/18 12:00 69 12/28/18 12:00 98.2 78 20 103/56 (72) 95 Intake and Output 12/28/18 12/29/18 19:00 07:00 Intake Total 240 ml Output Total 910 ml 600 ml Balance -670 ml -600 ml Intake Oral 240 ml Output Urine Total 910 ml 600 ml Stool Total 0 ml Current Medications Medications (Trade) Dose Ordered Sig/Penelope Route PRN Reason Start Time Stop Time Status Last Admin Dose Admin Acetaminophen (Tylenol) 650 mg Q4H PRN ORAL Mild Pain/Temp > 100.5 12/27/18 15:01 01/26/19 15:00 Aspirin (ASA) 81 mg DAILY ORAL 12/28/18 09:00 01/26/19 08:59 12/28/18 09:56 Dextrose/Sodium Chloride 1,000 ml @ 75 mls/hr [id number] IV 12/27/18 15:01 01/26/19 15:00 12/29/18 06:31 Docusate Sodium (Colace) 100 mg THREE TIMES A DAY ORAL 12/27/18 18:00 01/26/19 08:59 12/28/18 18:16 Donepezil HCl (Aricept) 10 mg DAILY ORAL 12/28/18 09:00 01/26/19 08:59 12/28/18 09:55 Epoetin Milad (Epoetin Milad-EPBX(NON ESRD)) 10,000 unit FRI-FRI-FRI SUBQ 12/28/18 21:00 01/26/19 12:59 12/28/18 20:51 Finasteride (Proscar) 5 mg DAILY ORAL 12/28/18 09:00 01/26/19 08:59 12/28/18 09:55 Heparin Sodium (Porcine) (Heparin 5000 units/ml) 5,000 units EVERY 12 HOURS SUBQ 12/27/18 21:00 01/26/19 08:59 12/28/18 20:53 Losartan Potassium (Cozaar) 25 mg DAILY ORAL 12/28/18 09:00 01/26/19 08:59 Memantine (Namenda) 10 mg DAILY ORAL 12/28/18 09:00 01/26/19 08:59 12/28/18 09:55 Ondansetron HCl (Zofran) 4 mg Q6H PRN IVP Nausea & Vomiting 12/27/18 15:03 01/26/19 15:02 Pantoprazole (Protonix) 40 mg EVERY 12 HOURS ORAL 12/27/18 21:00 01/26/19 08:59 12/28/18 20:51 Quetiapine Fumarate (SEROquel) 25 mg Q12HR ORAL 12/28/18 21:00 01/27/19 20:59 12/28/18 20:51 Tamsulosin HCl (Flomax) 0.4 mg QHS ORAL 12/27/18 21:00 01/26/19 20:59 12/28/18 20:51 Trazodone HCl (Desyrel) 50 mg BEDTIME ORAL 12/27/18 21:00 01/26/19 20:59 12/28/18 20:51 Laboratory Tests 12/29/18 05:55: White Blood Count 5.0, Red Blood Count 2.34L, Hemoglobin 8.6L, Hematocrit 25.3L , Mean Corpuscular Volume 108H, Mean Corpuscular Hemoglobin 36.6H, Mean Corpuscular Hemoglobin Concent 33.9, Red Cell Distribution Width 11.9, Platelet Count 156, Mean Platelet Volume 6.8, Neutrophils (%) (Auto) 35.2L, Lymphocytes ( %) (Auto) 54.2H, Monocytes (%) (Auto) 6.6, Eosinophils (%) (Auto) 3.7H, Basophils (%) (Auto) 0.4, Sodium Level 141, Potassium Level 3.8, Chloride Level 111H, Carbon Dioxide Level 26, Anion Gap 4L, Blood Urea Nitrogen 25H, Creatinine 1.7H, Estimat Glomerular Filtration Rate , Glucose Level 88, Uric Acid 6.4, Calcium Level 8.7, Total Bilirubin 0.3, Aspartate Amino Transf (AST/ SGOT) 13L, Alanine Aminotransferase (ALT/SGPT) 13, Alkaline Phosphatase 63, Total Protein 5.7L, Albumin 2.8L, Globulin 2.9, Albumin/Globulin Ratio 1.0 Height (Feet): 5 Height (Inches): 11.00 Weight (Pounds): 241 General Appearance: no apparent distress Cardiovascular: normal rate Respiratory/Chest: lungs clear Abdomen: soft Russell Samuels MD Dec 29, 2018 09:11
[2018-12-29] MEDS ORDERED: LOSARTAN POTASS25 MG ORAL (09:14)
--- NOTE | 2018-12-29 09:15 | Discharge Instructions ---
Discharge Instructions Discharge Instructions Follow up with: FU with PMD Services at Discharge: physical therapy Diet: cardiac 2 GM Na, low fat Special Instructions fall percaution routine skin care For Congestive Heart Failure Reminder Report to your physician any weight gain of 5 pounds or more in one week. Russell Samuels MD Dec 29, 2018 09:15
[2018-12-29] MEDS: Aspirin Baby 81mg ORAL SCH (09:17)
[2018-12-29] MEDS: Losartan 25mg tab ORAL SCH (09:17)
[2018-12-29] MEDS: Donepezil 10mg tab ORAL SCH (09:18)
[2018-12-29] MEDS: Memantine 10mg tab ORAL SCH (09:18)
[2018-12-29] MEDS: Docusate 100mg cap ORAL SCH ×3 (09:18→17:35)
[2018-12-29] MEDS: Heparin 5000 units/ml inj SUBQ SCH ×2 (09:19→21:08)
--- NOTE | 2018-12-29 09:32 | NUR ---
NURSE NOTES: Dr Samuels ordered for discharge. Ordered noted and daugherty catheter took out. Tip is intact, no sign of bleeding, no trauma to the site, 250ml of urine is recorded in the urine bag.
--- NOTE | 2018-12-29 09:44 | NUR ---
DISCHARGE PLANNING FAXED CLINICALS TO [facility] T: [phone] F: [phone] AWAIT ACCEPTANCE AND ASSIGNED ROOM NUMBER
--- NOTE | 2018-12-29 11:04 | NUR ---
NURSE NOTES: Called patient's son, Alvin to make him aware of pt's discharge order and how he wants his son to be transported there. Left message; awaiting response.
[2018-12-29 12:00] VITALS: BP 98/51
--- NOTE | 2018-12-29 12:00 | NUR ---
NURSE NOTES: Pt's son returned phone call and said pt can be transported via [facility] to [facility]. Son aware of discharge.
--- NOTE | 2018-12-29 12:58 | NUR ---
NURSE NOTES: Spoke with [facility] field support representative whom said we need at PT eval of the patient to ensure he can ambulate before we can discharge him there. Spoke with Dr. Samuels who said it was okay to order that. Attempting to contact PT to follow through with stat PT order.
--- NOTE | 2018-12-29 13:35 | NUR ---
P.T Note: P.T evaluation completed and treatment initiated. Pleases refer to P.T evaluation for current functional status. Pt is alert oriented to self and place but not to time however follows commands appropriately. Pt denied c/o pain nor discomfort and cooperative .Pt presented generalized weakness affecting overall functional mobility performance. Pt currently required SBA X 1 for bed mobility, transfers and gait/ambulation activities using the FWW. Skilled P.T service is warranted to improve his strength, balance and endurance to increase functional mobility independence and safety for return to PLOF. Anticipated DC to assisted living today pending void. Recommend P.T follow up for further strengthening to maximize mobility independence at the [facility]. Thank you for this referral.
--- NOTE | 2018-12-29 15:27 | NUR ---
NURSE NOTES: Spoke with Don at [facility] and he said they will accept the patient. Waiting for patient to void and then we will have [facility] pick him up.
--- NOTE | 2018-12-29 15:35 | NUR ---
NURSE NOTES: Pt has no voided since removal of daugherty. Bladder scan shows 200 ml and patient says he does not feel the urge to void. Pt drinking cranberry juice to help the process.
--- NOTE | 2018-12-29 15:44 | NUR ---
NURSE NOTES: [facility] transport arranged for patient around 5 pm.
[2018-12-29 16:00] VITALS: BP 109/59
--- NOTE | 2018-12-29 16:16 | NUR ---
NURSE NOTES: Pt voided post daugherty removal 150 ml.
--- NOTE | 2018-12-29 17:12 | NUR ---
NURSE NOTES: Spoke with [facility] who said transport will be 45 minutes more until arrival.
--- NOTE | 2018-12-29 18:30 | History and Physical Report ---
DATE OF ADMISSION: 12/26/2018 HISTORY OF PRESENT ILLNESS: The patient is an 78-year-old male who lives in assisted living section of [facility] with many medical conditions. The patient apparently was transferred to emergency room here at [facility] for generalized weakness and the patient was found to be hypotensive, high potassium with acute renal failure. The patient was subsequently admitted for further management. PAST MEDICAL HISTORY: Significant for dementia, hypertension, hyperlipemia, previous CVA, AK. MEDICATIONS: According to what is listed in the records. REVIEW OF SYSTEMS: The patient is uncooperative and somewhat confused. PHYSICAL EXAMINATION: VITAL SIGNS: On day of admission in the emergency room, the blood pressure was low which improved with fluid challenge. The patient is afebrile, pulse rate of 98, respiratory rate of 18, slightly pale. HEENT: Head is normocephalic. Sclerae not icteric. NECK: Supple. LUNGS: No wheeze. HEART: Mainly irregular, slightly tachycardic. ABDOMEN: Soft. EXTREMITIES: Lower extremities, no edema. LABORATORY AND DIAGNOSTIC DATA: Initial lab data showed a hemoglobin of 10.3, MCV of 106, white blood cells of 5200. Initial BUN 55, creatinine 3.8, potassium of 6.5. Urinalysis showed 1+ leukocyte esterase. ASSESSMENT: The patient was admitted with a diagnosis of acute renal failure mainly dehydration leading to hypotension and also most likely underlying CKD. Other conditions history of hypertension however the patient was hypotensive on presentation, dementia, BPH, history of colon cancer, history of anemia, coronary artery disease, and paroxysmal atrial fibrillation. PLAN: The patient was admitted in ICU, given Kayexalate for high potassium, started on IV hydration, blood pressure medication was held, renal parameters to be monitored, 2D echocardiogram and kidney ultrasound will be ordered. He will have a Rosales put in to rule out urinary outlet obstruction. According to how the patient's condition evolves, we will make the proper changes in our future management. Russell Samuels M.D. DR: Vincent JOB#: [id number] CC:
--- NOTE | 2018-12-29 18:30 | NUR ---
NURSE NOTES: [facility] will be here another [address] [facility] and made them aware.
--- NOTE | 2018-12-29 19:19 | NUR ---
HAND-OFF: Report given to HOUSTON Chao. Patient's in stable condition, plan of care endorsed.
--- NOTE | 2018-12-29 19:20 | NUR ---
NURSE NOTES: Got report from Emy RN. Pt in stable condition. Denies any pain. No s/s of distress or discomfort noted. Pt resting in bed comfortably. Bed in low and locked position, call light within reach, bedside table within reach. Continue to monitor. Per report pt is going to be discharged tonight to [facility] via [facility].
[2018-12-29 20:00] VITALS: BP 107/57
[2018-12-29] MEDS: TraZODone 50mg tab ORAL SCH (21:06)
[2018-12-29] MEDS: Tamsulosin 0.4mg cap ORAL SCH (21:06)
--- NOTE | 2018-12-29 21:40 | NUR ---
NURSE NOTES: Pt in stable condition. 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 Report and paperwork given. All pt belongings taken with pt. Pt put on gurney and will be taken to [facility].
--- NOTE | 2018-12-30 14:36 | Discharge Summary ---
Discharge Summary Discharge Summary _ DATE OF ADMISSION: 12/26/2018 DATE OF DISCHARGE: 12/29/2008 DISCHARGED BY:Dr. Samuels REASON FOR ADMISSION: 78 years old male , resident of assisted living of [facility], with past medical history significant for hypertension, hyperlipidemia, history of CVA, myocardial infarction, coronary artery disease, paroxysmal atrial fibrillation, BPH, history of colon cancer, dementia, was transferred to emergency department for generalized weakness. Upon evaluation patient was found to be hypotensive. Laboratory work-up revealed acute renal failure and hyperkalemia. Patient subsequently was admitted for further management. HOSPITAL COURSE: Patient initially admitted to ICU. Hyperkalemia was treated with Kayexalate. Patient started on the IV hydration. All antihypertensive medications were on hold. Blood pressure responded to fluids. Renal parameters and electrolytes were closely monitored. Electrolytes further corrected as needed, nephrotoxins were avoided. Rosales catheter was placed to rule out urinary outlet obstruction. Renal ultrasound revealed no evidence of hydronephrosis. Normal bilateral kidney echogenicity. Echocardiogram demonstrated preserved ejection fraction of 60% with no evidence of wall motion abnormality. No evidence of left ventricular hypertrophy. Right ventricular systolic pressure of 18. Antiplatelet therapy with aspirin continued. Lipid panel was stable. Repeated troponin negative. EKG revealed no acute ischemic changes. Patient was ruled out for acute IA. DVT prophylaxis provided. When blood pressure stabilized, patient started on low-dose of Cozaar . Telemetry consistently revealed sinus rhythm Bowel regimen instituted. Home medication resumed. Prior to discharge creatinine from 3.8 down to 1.7 and BUN from 55 down to 25. Hemoglobin and hematocrit were closely monitored with goal to keep hemoglobin above 7. Prior to discharge hemoglobin 8.6, hematocrit 25.3. Anemia work-up was consistent with anemia of chronic deficiency. Ferritin 701. Patient noted to have elevated PSA. Consider outpatient follow-up for further work-up. Patient clinically stabilized and was ready for transfer to nursing home facility for continuation of care. FINAL DIAGNOSES: Acute kidney injury Dehydration Hypotension Anemia of chronic disease Elevated PSA Impaired cognition Possibly underlying chronic kidney disease History of hypertension Dementia BPH History of colon cancer Coronary artery disease Paroxysmal atrial fibrillation DISCHARGE MEDICATIONS: See Medication Reconciliation list. DISCHARGE INSTRUCTIONS: Patient was discharged to the nursing home facility. Follow up with medical doctor at the facility. I have been assigned to dictate discharge summary for this account. I was not involved in the patient's management. Shelley Osman NP Dec 30, 2018 14:36
== END 2018-12-29 21:40 | DRG 684 ==
LOC: EDBD 15:48 → EMR 16:12 → EDBEDREQ 16:47 → ICU 17:46 → EDBEDREQ 18:10 → EDBEDREQSVC 18:10 → EDBEDREQ 18:11 → 2E 12-27 14:53
DX: N17.9 Acute kidney failure, unspecified (principal); I95.9 Hypotension, unspecified; D63.8 Anemia in other chronic diseases classified elsewhere; E86.0 Dehydration; R97.20 Elevated prostate specific antigen [PSA]; I12.9 Hypertensive chronic kidney disease with stage 1 through stage 4 chronic kidney disease, or unspecified chronic kidney disease; N18.9 Chronic kidney disease, unspecified; F03.90 Unspecified dementia, unspecified severity, without behavioral disturbance, psychotic disturbance, mood disturbance, and anxiety; N40.0 Benign prostatic hyperplasia without lower urinary tract symptoms; Z85.038 Personal history of other malignant neoplasm of large intestine; I25.10 Atherosclerotic heart disease of native coronary artery without angina pectoris; I48.0 Paroxysmal atrial fibrillation; E78.5 Hyperlipidemia, unspecified; Z86.73 Personal history of transient ischemic attack (TIA), and cerebral infarction without residual deficits; I25.2 Old myocardial infarction
CPT/HCPCS: 36415; 71045; 76770; 80053; 80061; 81003; 82378; 82533; 82550; 82607; 82728; 82746; 82977; 83036; 83540; 83550; 83605; 83690; 83735; 83880; 84100; 84153; 84300; 84443; 84484; 84550; 85007; 85025; 86140; 87081; 87086; 93005; 93306; 96361; 96365; 96367; 96375; 99291